=== PATIENT | female | born 1965 | race American Indian/Alaskan Native ===

== ENCOUNTER 2020-04-09 14:10 | Inpatient (IN) | payer OTHER ==
--- NOTE | 2020-04-09 15:59 | Event Note ---
ED Screening Note ED Screening Note: c/o headache that began a week ago pressure all over the head no vision changes, no numbness, no weakness, no speech or gait disturbance states earlier in the week had fever but resolved no n/v/d states she also has a cough and has been on a zpak states she had the COVID 19 test on thursday PMHx HTN no allergies to meds This initial assessment/diagnostic orders/clinical plan/treatment(s) is/are subject to change based on patients health status, clinical progression and re- assessment by fellow clinical providers in the ED. Further treatment and workup at subsequent clinical providers discretion. Patient/guardian urged not to elope from the ED as their condition may be serious if not clinically assessed and managed. Initial orders include: CT head, labs, CXR
--- NOTE | 2020-04-09 16:28 | XRay Report ---
CHEST 2 VIEWS INDICATION: cough, fever, SOB. COMPARISON: 12/02/2014 FINDINGS: SUPPORT DEVICES: None. HEART: Within normal limits. LUNGS/PLEURA: Patchy bibasilar predominant airspace disease in both lungs with some central peribronc hial thickening which demonstrates symmetry. This may reflect a component of mild superimposed edema. No effusion. No pneumothorax. ADDITIONAL FINDINGS: None. IMPRESSION: 1. Pulmonary findings as above. Signer Name: Devonte Goodson MD Signed: 04/09/2020 4:24 PM Workstation Name: [id number]
[2020-04-09 17:28] LABS: Basophils # (Auto) 0.1 K/mm3 (0.0-0.1); Hematocrit 36.8 % (30.3-42.9); Hemoglobin 11.8 gm/dl (10.1-14.3); Lymphocytes # (Auto) 0.8 K/mm3 (1.2-5.4); Lymphocytes % (Auto) 13.3 % (13.4-35.0); Mean Corpuscular HGB Conc 32 % (30-34); Monocytes # (Auto) 0.2 K/mm3 (0.0-0.8); Monocytes % (Auto) 3.8 % (0.0-7.3); Platelet Count 312 K/mm3 (140-440); Red Cell Distribution Width 14.6 % (13.2-15.2)
[2020-04-09 17:34] LABS: Mean Corpuscular Volume 70 fl (79-97)
[2020-04-09] MEDS ORDERED: cefTRIAXone/NS 1 GM/50 ML 1 GM/50 ML BAG IV ONE (17:34)
[2020-04-09] MEDS ORDERED: SODIUM CHLORIDE 0.9% 1000 ML 1,000 ML IV ONE (17:34)
[2020-04-09] MEDS ORDERED: MORPHINE 4 MG/1 ML INJ IV ONE (17:35)
[2020-04-09] MEDS ORDERED: methylPREDNISolone Sod Succinate 40 MG/1 ML INJ IV ONE (17:35)
--- NOTE | 2020-04-09 17:38 | Emergency Department Report ---
HPI - General Chief Complaint: Upper Respiratory Infection Time Seen by Provider: 04/09/20 15:56 - HPI HPI: This is a 55-year-old female presents to the emergency department with a complaint of a 1.5-week history of intermittent headache, mixed dry and pr oductive cough and some mild shortness of breath. Patient also says that she thinks she had a fever earlier last week. Patient has a past medical history of hypertension. She went to an urgent care last week and was placed on some 4-day course of antibiotics but says that did not help. She was tested for Covid 19 at that time but says she has not yet received the results. No recent travel or sick contacts at home. No known exposure to anyone with Covid 19. She denies any tobacco or illicit drug use. ED Past Medical Hx - Past Medical History Previous Medical History?: Yes Hx Hypertension: Yes - Surgical History Past Surgical History?: Yes Additional Surgical History: Hysterectomy - Social History Smoking Status: Never Smoker Substance Use Type: None - Medications Home Medications: Home Medications Medication Instructions Recorded Confirmed Last Taken Type Amlodipine Besylate 10 mg PO ONCE 04/09/20 04/09/20 04/08/20 20:00 History Azithromycin [Zithromax] 250 mg PO BID 04/09/20 04/09/20 04/08/20 20:00 History Cyclobenzaprine [Flexeril 10 MG 10 mg PO BID 04/09/20 04/09/20 04/08/20 20:00 History TAB] ED Review of Systems ROS: Stated complaint: WEAKNESS/HEADACHE/FEVER/COUGH/CONGESTION Other details as noted in HPI Comment: All other systems reviewed and negative Constitutional: other (fatigue). denies: chills Eyes: denies: eye pain, vision change ENT: denies: ear pain, throat pain Respiratory: cough, shortness of breath Cardiovascular: denies: chest pain, palpitations Gastrointestinal: denies: abdominal pain, vomiting Genitourinary: denies: dysuria, discharge Musculoskeletal: myalgia. denies: joint swelling Skin: denies: rash, lesions Neurological: headache. denies: numbness Physical Exam - Physical Exam Vital Signs: Vital Signs 04/09/20 04/09/20 15:57 16:39 Temperature 99.6 F Pulse Rate 92 H Respiratory 18 Rate Blood Pressure 132/74 O2 Sat by Pulse 92 91 Oximetry Physical Exam: GENERAL: The patient is well-developed well-nourished. HENT: Normocephalic. Atraumatic. Patient has moist mucous membranes. EYES: Extraocular motions are intact. No nystagmus. NECK: Supple. Trachea is midline. CHEST/LUNGS: There is tachypnea but no accessory muscle use. A dry cough heard during examination. There is no respiratory distress noted. HEART/CARDIOVASCULAR: Regular. There is no tachycardia. ABDOMEN: Abdomen is soft, nontender. Patient has normal bowel sounds. SKIN: Skin is warm and dry. NEURO: The patient is awake, alert, and oriented. The patient is cooperative. The patient has no focal neurologic deficits. Normal speech. MUSCULOSKELETAL: There is no tenderness or deformity. ED Course Vital Signs 04/09/20 04/09/20 15:57 16:39 Temperature 99.6 F Pulse Rate 92 H Respiratory 18 Rate Blood Pressure 132/74 O2 Sat by Pulse 92 91 Oximetry ED Medical Decision Making - Lab Data Result diagrams: 04/09/20 16:34 04/09/20 16:55 - Radiology Data Radiology results: image reviewed interpreted by me: Chest x-ray shows bilateral patchy infiltrates concerning for pneumonia. - Medical Decision Making This patient presents with a 1.5-week history of some mild shortness of breath, coughing, headache. She presents to triage with some hypoxia of 91 to 92% on room air. Chest x-ray shows bilateral patchy infiltrates. Patient's labs show multiple elevated inflammatory markers such as d-dimer, LDH and CRP. All this together makes the patient moderate to high suspicion for Covid 19. Due to the hypoxia, the patient will be admitted to the hospital for further evaluation and treatment. She was given IV antibiotics, IV fluid, IV analgesia, IV steroids. The patient was accepted for admission by the hospitalist, Dr. Pearce. This patient was in patient isolation and droplet precautions during her entire ED course. I wore full PPE gear for every interaction. Critical Care Time: Yes Critical care time in (mins) excluding proc time.: 31 Critical care attestation.: If time is entered above; I have spent that time in minutes in the direct care of this critically ill patient, excluding procedure time. Critical care time spent on this patient in doing her initial evaluation, multiple re-evaluations, ordering and interpretation of labs and imaging, multiple discussions with the patient, IV analgesia, IV antibiotics, IV fluid resuscitation. Critical Care Time: 31 minutes ED Disposition Clinical Impression: Suspected 2019 novel coronavirus infection, Hypoxia Pneumonia Qualifiers: Pneumonia type: due to unspecified organism Laterality: bilateral Lung location: unspecified part of lung Qualified Code(s): J18.9 - Pneumonia, unspecified organism Disposition: OP ADMIT IP TO THIS HOSP Is pt being admited?: Yes Condition: Stable Time of Disposition: 18:08
[2020-04-09 17:42] LABS: C-Reactive Protein 9.9 mg/dL (0.00-1.30)
[2020-04-09 17:55] LABS: Alanine Aminotransferase 37 units/L (7-56); Albumin 3.4 g/dL (3.9-5); BUN/Creatinine Ratio 10; Blood Urea Nitrogen 10 mg/dL (7-17); Calcium 8.8 mg/dL (8.4-10.2); Hemolysis Index 0
[2020-04-09] MEDS ORDERED: AZITHROMYCIN 500 MG in SODIUM CHLORIDE 0.9% 250ML 250 ML IV ONE (18:00)
[2020-04-09] MEDS ORDERED: methylPREDNISolone Sod Succinate 40 MG/1 ML INJ ONE (18:39)
--- NOTE | 2020-04-09 23:36 | History and Physical Report ---
History of Present Illness Date of examination: 04/09/20 Date of admission: 04/09/20 18:08 Chief complaint: Headache and cough for 10 days. Tested for COVID 4 days ago. History of present illness: 55-year-old female with history of hypertension comes to the emergency room because of 10 days history of headache and productive cough and shortness of breath. Patient had fever last week. Patient has no history of exposure to coronavirus. Patient is on antibiotics for 4days this did not help she is tested for covered 19 virus infection 4 days ago but the results are not back. No known exposure. Body aches present. - Past Medical History Previous Medical History?: Yes Hx Hypertension: Yes - Surgical History Past Surgical History?: Yes Additional Surgical History: Hysterectomy - Social History Smoking Status: Never Smoker Substance Use Type: None - Medications Home Medications: Home Medications Medication Instructions Recorded Confirmed Last Taken Type Amlodipine Besylate 10 mg PO ONCE 04/09/20 04/09/20 04/08/20 20:00 History Azithromycin [Zithromax] 250 mg PO BID 04/09/20 04/09/20 04/08/20 20:00 History Cyclobenzaprine [Flexeril 10 MG 10 mg PO BID 04/09/20 04/09/20 04/08/20 20:00 History TAB] Review of Systems ROS: Stated complaint: WEAKNESS/HEADACHE/FEVER/COUGH/CONGESTION Other details as noted in HPI Comment: All other systems reviewed and negative Constitutional: other (fatigue). denies: chills Eyes: denies: eye pain, vision change ENT: denies: ear pain, throat pain Respiratory: cough, shortness of breath Cardiovascular: denies: chest pain, palpitations Gastrointestinal: denies: abdominal pain, vomiting Genitourinary: denies: dysuria, discharge Musculoskeletal: myalgia. denies: joint swelling Skin: denies: rash, lesions Neurological: headache. denies: numbness Medications and Allergies Allergies Allergy/AdvReac Type Severity Reaction Status Date / Time No Known Allergies Allergy Verified 12/02/14 09:48 Home Medications Medication Instructions Recorded Confirmed Last Taken Type Amlodipine Besylate 10 mg PO ONCE 04/09/20 04/09/20 04/08/20 20:00 History Azithromycin [Zithromax] 250 mg PO BID 04/09/20 04/09/20 04/08/20 20:00 History Cyclobenzaprine [Flexeril 10 MG 10 mg PO BID 04/09/20 04/09/20 04/08/20 20:00 History TAB] Exam - Constitutional Vitals: Temp Pulse Resp BP Pulse Ox 98.4 F 77 20 126/71 97 04/09/20 23:02 04/09/20 23:02 04/09/20 23:02 04/09/20 23:02 04/09/20 23:02 General appearance: Present: no acute distress, well-nourished - EENT Eyes: Present: PERRL ENT: hearing intact, clear oral mucosa - Neck Neck: Present: supple, normal ROM - Respiratory Respiratory effort: normal Respiratory: bilateral: CTA, wheezing (Scattered rhonchi) - Cardiovascular Heart Sounds: Present: S1 & S2. Absent: rub, click - Extremities Extremities: pulses symmetrical, No edema Peripheral Pulses: within normal limits - Abdominal General gastrointestinal: Present: soft, non-tender, non-distended, normal bowel sounds Female genitourinary: Present: normal - Integumentary Integumentary: Present: clear, warm, dry - Musculoskeletal Musculoskeletal: gait normal, strength equal bilaterally - Psychiatric Psychiatric: appropriate mood/affect, intact judgment & insight - Neurologic Neurologic: CNII-XII intact, moves all extremities Results - Labs CBC & Chem 7: 04/10/20 03:47 04/10/20 03:47 Labs: Laboratory Last Values WBC 6.2 K/mm3 (4.5-11.0) 04/09/20 16:34 RBC 5.30 M/mm3 (3.65-5.03) H 04/09/20 16:34 Hgb 11.8 gm/dl (10.1-14.3) 04/09/20 16:34 Hct 36.8 % (30.3-42.9) 04/09/20 16:34 MCV 70 fl (79-97) L 04/09/20 16:34 MCH 22 pg (28-32) L 04/09/20 16:34 MCHC 32 % (30-34) 04/09/20 16:34 RDW 14.6 % (13.2-15.2) 04/09/20 16:34 Plt Count 312 K/mm3 (140-440) 04/09/20 16:34 Lymph % (Auto) 13.3 % (13.4-35.0) L 04/09/20 16:34 Walton % (Auto) 3.8 % (0.0-7.3) 04/09/20 16:34 Eos % (Auto) 0.0 % (0.0-4.3) 04/09/20 16:34 Baso % (Auto) 2.0 % (0.0-1.8) H 04/09/20 16:34 Lymph # 0.8 K/mm3 (1.2-5.4) L 04/09/20 16:34 Walton # 0.2 K/mm3 (0.0-0.8) 04/09/20 16:34 Eos # 0.0 K/mm3 (0.0-0.4) 04/09/20 16:34 Baso # 0.1 K/mm3 (0.0-0.1) 04/09/20 16:34 Seg Neutrophils % 80.9 % (40.0-70.0) H 04/09/20 16:34 Seg Neutrophils # 5.0 K/mm3 (1.8-7.7) 04/09/20 16:34 D-Dimer 883.79 ng/mlDDU (0-234) H 04/09/20 16:55 Sodium 135 mmol/L (137-145) L 04/09/20 16:34 Potassium 4.1 mmol/L (3.6-5.0) 04/09/20 16:34 Chloride 92.5 mmol/L (98-107) L 04/09/20 16:34 Carbon Dioxide 29 mmol/L (22-30) 04/09/20 16:34 Anion Gap 18 mmol/L 04/09/20 16:34 BUN 10 mg/dL (7-17) 04/09/20 16:34 Creatinine 1.0 mg/dL (0.6-1.2) 04/09/20 16:34 Estimated GFR > 60 ml/min 04/09/20 16:34 BUN/Creatinine Ratio 10 % 04/09/20 16:34 Glucose 114 mg/dL (65-100) H 04/09/20 16:55 Calcium 8.8 mg/dL (8.4-10.2) 04/09/20 16:34 Total Bilirubin 0.70 mg/dL (0.1-1.2) 04/09/20 16:34 AST 39 units/L (5-40) 04/09/20 16:34 ALT 37 units/L (7-56) 04/09/20 16:34 Alkaline Phosphatase 83 units/L (35-129) 04/09/20 16:34 Lactate Dehydrogenase 500 units/L (91-180) H 04/09/20 16:55 C-Reactive Protein 9.90 mg/dL (0.00-1.30) H 04/09/20 16:55 NT-Pro-B Natriuret Pep 36.23 pg/mL (0-900) 04/09/20 16:34 Total Protein 7.7 g/dL (6.3-8.2) 04/09/20 16:34 Albumin 3.4 g/dL (3.9-5) L 04/09/20 16:34 Albumin/Globulin Ratio 0.8 % 04/09/20 16:34 - Imaging and Cardiology EKG: report reviewed Imaging and Cardiology: LUNGS/PLEURA: Patchy bibasilar predominant airspace disease in both lungs with some central peribronchial thickening which demonstrates symmetry. This may reflect a component of mild superimposed edema. No effusion. No pneumothorax. ADDITIONAL FINDINGS: None. IMPRESSION: 1. Pulmonary findings as above. Signer Assessment and Plan Advance Directives: Yes (Full code) VTE prophylaxis?: Chemical - Patient Problems (1) Systemic inflammatory response syndrome Current Visit: Yes Status: Acute Plan to address problem: Clinical picture consistent with systemic inflammatory response syndrome (2) Acute respiratory failure with hypoxia Current Visit: Yes Status: Acute (3) Bilateral pneumonia Current Visit: Yes Status: Acute Plan to address problem: Patient started on Zithromax and IV Rocephin. Patient also initiated on IV Decadron (4) Suspected 2019 novel coronavirus infection Current Visit: Yes Status: Acute Plan to address problem: Coronavirus PCR ordered. Inflammatory markers are elevated ID consult requested (5) Elevated d-dimer Current Visit: Yes Status: Acute Plan to address problem: Patient initiated on Lovenox subcu (6) DVT prophylaxis Current Visit: Yes Status: Acute Plan to address problem: Patient initiated on Lovenox and GI prophylaxis
[2020-04-09] MEDS ORDERED: oxyCODONE /ACETAMINOPHEN 5-325MG TAB PO PRN (23:38)
[2020-04-09] MEDS ORDERED: HYDROmorphone 1 MG/1 ML INJ IV PRN (23:38)
[2020-04-09] MEDS ORDERED: ACETAMINOPHEN 325 MG TAB PO PRN (23:38)
[2020-04-09] MEDS ORDERED: ONDANSETRON 4 MG/2 ML INJ IV PRN (23:38)
[2020-04-09] MEDS ORDERED: ENOXAPARIN 40 MG/0.4 ML INJ SUB-Q SCH (23:45)
[2020-04-09] MEDS ORDERED: NON-FORMULARY EACH (Amlodipine Besylate 10 MG) PO SCH (23:45)
[2020-04-10] MEDS: amLODIPine 10 MG TAB PO SCH ×2 (00:42→09:46)
[2020-04-10] MEDS: ENOXAPARIN 100 MG/1 ML INJ SUB-Q SCH ×3 (00:42→23:48)
[2020-04-10 04:35] LABS: Hematocrit 35.3 % (30.3-42.9); Hemoglobin 11.1 gm/dl (10.1-14.3); Mean Corpuscular HGB Conc 32 % (30-34); Platelet Count 301 K/mm3 (140-440); Red Blood Count 5.05 M/mm3 (3.65-5.03); Red Cell Distribution Width 14.5 % (13.2-15.2)
[2020-04-10 04:40] LABS: Mean Corpuscular Volume 70 fl (79-97)
[2020-04-10 04:46] LABS: Alanine Aminotransferase 41 units/L (7-56); BUN/Creatinine Ratio 10; Blood Urea Nitrogen 9 mg/dL (7-17); Calcium 8.4 mg/dL (8.4-10.2); Hemolysis Index 1
[2020-04-10 05:50] LABS: Eosinophils % (Manual) 0 % (0.0-4.3); Platelet Estimate Consistent w Auto; Total Cells Counted 100
[2020-04-10] MEDS: FAMOTIDINE 20 MG TAB PO SCH ×2 (09:44→22:42)
[2020-04-10] MEDS: DEXAMETHASONE 4 MG TAB PO SCH (09:45)
[2020-04-10] MEDS: CYCLOBENZAPRINE 10 MG TAB PO SCH ×2 (09:45→22:42)
[2020-04-10] MEDS: cefTRIAXone/NS 2 GM/100 ML 2 GM/100 ML BAG IV SCH (09:46)
[2020-04-10] MEDS ORDERED: AZITHROMYCIN 500 MG in SODIUM CHLORIDE 0.9% 250ML 250 ML IV SCH (10:00)
[2020-04-10] MEDS ORDERED: dexAMETHasone 4 MG/ML VIAL IV SCH (10:00)
--- NOTE | 2020-04-10 18:47 | Progress Note ---
Assessment and Plan - Patient Problems (1) Acute respiratory failure with hypoxia Current Visit: Yes Status: Acute Plan to address problem: Patient acute respiratory failure seems to be improving. Marked elevated inflammatory markers most likely secondary to COVID-19 pneumonia. (2) Bilateral pneumonia Current Visit: Yes Status: Acute Plan to address problem: Most likely secondary to COVID-19 pneumonia. Inflammatory markers elevated. We will continue to treat with empiric antibiotics for community-acquired pneumonia follow blood cultures accordingly. (3) Hypoxia Current Visit: Yes Status: Acute Plan to address problem: Resolving with oxygen. No longer requires high flow O2. (4) Suspected 2019 novel coronavirus infection Current Visit: Yes Status: Acute Subjective Date of service: 04/10/20 Principal diagnosis: Pneumonia acute respiratory failure. Interval history: Patient 55-year-old with a history of hypertension presented with 10-day history of headache productive cough and shortness of breath. Patient found to have marked elevation of inflammatory markers. D-dimer ferritin LDH. Patient was admitted for sepsis. And acute respiratory failure. Objective - Constitutional Vitals: Vital Signs - 12hr 04/10/20 04/10/20 09:15 09:46 Pulse Rate 65 Respiratory 18 Rate Blood Pressure 114/56 General appearance: Present: no acute distress, well-nourished - EENT Eyes: PERRL, EOM intact ENT: hearing intact, clear oral mucosa Ears: bilateral: normal - Neck Neck: supple, normal ROM - Respiratory Respiratory effort: normal Respiratory: bilateral: CTA - Breasts Breasts: normal - Cardiovascular Rhythm: regular Heart Sounds: Present: S1 & S2. Absent: gallop, rub Extremities: pulses intact, No edema, normal color, Full ROM - Gastrointestinal General gastrointestinal: Present: soft, non-tender, non-distended, normal bowel sounds - Genitourinary Female genitourinary: normal - Integumentary Integumentary: clear, warm, dry - Musculoskeletal Musculoskeletal: 1, strength equal bilaterally - Neurologic Neurologic: moves all extremities - Psychiatric Psychiatric: memory intact, appropriate mood/affect, intact judgment & insight - Labs CBC & Chem 7: 04/10/20 03:47 04/10/20 03:47 Labs: Abnormal lab results 04/09/20 04/10/20 04/10/20 Range/Units 16:55 03:47 03:47 RBC 5.05 H (3.65-5.03) M/mm3 MCV 70 L (79-97) fl MCH 22 L (28-32) pg Seg Neuts % (Manual) 89.0 H (40.0-70.0) % Lymphocytes % (Manual) 8.0 L (13.4-35.0) % Lymphocytes # (Manual) 0.4 L (1.2-5.4) K/mm3 Sodium 135 L (137-145) mmol/L Chloride 95.0 L (98-107) mmol/L Glucose 190 H (65-100) mg/dL Ferritin 421.3 H (10.0-200.0) ng/mL AST 44 H (5-40) units/L Albumin 3.0 L (3.9-5) g/dL Coronavirus (PCR) (Negative) 04/10/20 Range/Units 08:32 RBC (3.65-5.03) M/mm3 MCV (79-97) fl MCH (28-32) pg Seg Neuts % (Manual) (40.0-70.0) % Lymphocytes % (Manual) (13.4-35.0) % Lymphocytes # (Manual) (1.2-5.4) K/mm3 Sodium (137-145) mmol/L Chloride (98-107) mmol/L Glucose (65-100) mg/dL Ferritin (10.0-200.0) ng/mL AST (5-40) units/L Albumin (3.9-5) g/dL Coronavirus (PCR) Positive A (Negative)
--- NOTE | 2020-04-10 20:04 | Consultation ---
History of Present Illness - Reason for Consult Consult date: 04/10/20 COVID Requesting physician: ROSS GONZALEZ - History of Present Illness 55 years old female with history of hypertension, admitted on due to 2-week history of generalized malaise, body aches, fever, headaches, cough and progressive shortness of breath. She was seen as an outpatient and given antibiotics which did not work. On arrival, temperature 99, HR 88, RR 20, O2 sat 91% on room air, BP 132/74. Initial WBC 6.2. D-dimer 883. Ferritin 421. LDH 500. Creatinine 1. CRP 9.9. Chest x-ray with bibasilar patchy infiltrates. COVID-19 PCR positive. Review of Systems: positive in bold print General: + fever, +chills, +malaise Cutaneous: rash, pruritus Head: headaches or injury Eyes: changes in vision, eye pain, double vision Ears: ear pain, ear discharge, ringing or hearing loss Nose: nose bleeding, stuffiness Mouth & throat: bleeding gums, horseness, no dental problems, or swollen glands Neck: no pain, node enlargement/lumps, tyroid enlargement or tenderness Respiratory: +SOB, +cough, +WAYNE, wheezing, sputum, hemoptysis, pleuritic chest pain Cardiovascular: chest pain, leg edema, cyanosis, WAYNE, orthopnea Musculoskeletal: edema, deformities, clubbing Gastrointestinal: nausea, vomiting, hematemesis, diarrhea, constipation, melena, bright red blood in stools, fecal incontinence, jaundice Genitourinary/Reproductive: frequent urination, dysuria, hematuria, incontinence Neurogical: confusion, seizures, headaches, weakness, paresthesias, loss of speech or vision; memory loss, vertigo, tremors, numbness Psychiatric: stable mood; excessive anxiety, sadness or moodiness Medications and Allergies Allergies Allergy/AdvReac Type Severity Reaction Status Date / Time No Known Allergies Allergy Verified 12/02/14 09:48 Home Medications Medication Instructions Recorded Confirmed Last Taken Type Amlodipine Besylate 10 mg PO ONCE 04/09/20 04/09/20 04/08/20 20:00 History Azithromycin [Zithromax] 250 mg PO BID 04/09/20 04/09/20 04/08/20 20:00 History Cyclobenzaprine [Flexeril 10 MG 10 mg PO BID 04/09/20 04/09/20 04/08/20 20:00 History TAB] Active Meds: Active Medications Acetaminophen (Tylenol) 650 mg PO Q4H PRN PRN Reason: Pain MILD(1-3)/Fever >100.5/UGALDE Amlodipine Besylate (Amlodipine) 10 mg PO QDAY [facility] Last Admin: 04/10/20 09:46 Dose: Not Given Documented by: Azithromycin (Zithromax) 500 mg PO QDAY [facility] Stop: 04/13/20 10:01 Cyclobenzaprine HCl (Flexeril) 10 mg PO BID [facility] Last Admin: 04/10/20 09:45 Dose: 10 mg Documented by: Dexamethasone (Decadron) 6 mg PO DAILY [facility] Stop: 04/19/20 10:01 Last Admin: 04/10/20 09:45 Dose: 6 mg Documented by: Enoxaparin Sodium (Enoxaparin) 100 mg SUB-Q Q12H [facility] Last Admin: 04/10/20 12:59 Dose: 100 mg Documented by: Famotidine (Pepcid) 20 mg PO BID [facility] Last Admin: 04/10/20 09:44 Dose: 20 mg Documented by: Hydromorphone HCl (Dilaudid) 0.5 mg IV Q3H PRN PRN Reason: Pain , Severe (7-10) Ceftriaxone Sodium (Rocephin/Ns 2 Gm/100 Ml) 2 gm in 100 mls @ 200 mls/hr IV Q24HR [facility]; Protocol Last Infusion: 04/10/20 10:20 Dose: Infused Documented by: Ondansetron HCl (Zofran) 4 mg IV Q8H PRN PRN Reason: Nausea And Vomiting Oxycodone/Acetaminophen (Percocet 5/325) 1 tab PO Q6H PRN PRN Reason: Pain, Moderate (4-6) Sodium Chloride (Sodium Chloride Flush Syringe 10 Ml) 10 ml IV BID [facility] Last Admin: 04/10/20 09:46 Dose: 10 ml Documented by: Sodium Chloride (Sodium Chloride Flush Syringe 10 Ml) 10 ml IV PRN PRN PRN Reason: LINE FLUSH Physical Examination - Physical Exam Narrative exam: Physical Exam: reviewed ED and hospitalist notes, limited due to conservation of PPE General appearance: limited due to conservation of PPE Eyes: limited due to conservation of PPE HENT: Atraumatic; limited due to conservation of PPE Lungs: limited due to conservation of PPE CV: limited due to conservation of PPE Abdomen: limited due to conservation of PPE Extremities: limited due to conservation of PPE Skin: limited due to conservation of PPE Psych: limited due to conservation of PPE Neuro: limited - Constitutional Vitals: Vital Signs Temp Pulse Resp BP Pulse Ox 98.3 F 65 18 114/56 93 04/10/20 05:34 04/10/20 09:46 04/10/20 09:15 04/10/20 09:46 04/10/20 05:34 Temperature -Last 24 Hours Temperature 98.3 F Temperature 98.4 F Results - Labs CBC & Chem 7: 04/10/20 03:47 04/10/20 03:47 Labs: Abnormal lab results 04/09/20 04/10/20 04/10/20 Range/Units 16:55 03:47 03:47 RBC 5.05 H (3.65-5.03) M/mm3 MCV 70 L (79-97) fl MCH 22 L (28-32) pg Seg Neuts % (Manual) 89.0 H (40.0-70.0) % Lymphocytes % (Manual) 8.0 L (13.4-35.0) % Lymphocytes # (Manual) 0.4 L (1.2-5.4) K/mm3 Sodium 135 L (137-145) mmol/L Chloride 95.0 L (98-107) mmol/L Glucose 190 H (65-100) mg/dL Ferritin 421.3 H (10.0-200.0) ng/mL AST 44 H (5-40) units/L Albumin 3.0 L (3.9-5) g/dL Coronavirus (PCR) (Negative) 04/10/20 Range/Units 08:32 RBC (3.65-5.03) M/mm3 MCV (79-97) fl MCH (28-32) pg Seg Neuts % (Manual) (40.0-70.0) % Lymphocytes % (Manual) (13.4-35.0) % Lymphocytes # (Manual) (1.2-5.4) K/mm3 Sodium (137-145) mmol/L Chloride (98-107) mmol/L Glucose (65-100) mg/dL Ferritin (10.0-200.0) ng/mL AST (5-40) units/L Albumin (3.9-5) g/dL Coronavirus (PCR) Positive A (Negative) Assessment and Plan Cultures: none Assessment: 55 years old female with history of hypertension, admitted on due to 2-week history of generalized malaise, body aches, fever, headaches, cough and progressive shortness of breath: #Severe sepsis : likely due to bilateral pneumonia. #Severe COVID pneumonia: Patient presented with 2 weeks of symptoms, chest x-ray with patchy bibasilar infiltrates. Admission O2 sats 91% on room air. Inflammatory markers are mildly elevated - D-dimer 883. Ferritin 421. LDH 500 CRP 9.9. #Acute hypoxemic respiratory failure: on 2L NC O2 Recommendations: -Start Dexamethasone 6 mg IV/PO daily for 10 days -If persistent hypoxia will consider Remdesivir 200 mg IV q day x 1 day followed by 100 mg IV q day x 4 days (CrCl>30. Order placed) -If rapidly worsening hypoxia will consider Tocilizumab 8 mg/kg IV x 1 -Monitor inflammatory markers - ferritin, Ddimer, CRP, LDH -Continue anticoagulation per protocol High risk mortality due to severe COVID-19 infection and comorbidities. Will follow Anjana Serrano MD Infectious Diseases Configuration Management Manager [facility] M [phone] O [phone]
[2020-04-11] MEDS: FAMOTIDINE 20 MG TAB PO SCH (09:19)
[2020-04-11] MEDS: DEXAMETHASONE 4 MG TAB PO SCH (09:19)
[2020-04-11] MEDS: amLODIPine 10 MG TAB PO SCH (09:20)
[2020-04-11] MEDS: CYCLOBENZAPRINE 10 MG TAB PO SCH (09:20)
[2020-04-11] MEDS: cefTRIAXone/NS 2 GM/100 ML 2 GM/100 ML BAG IV SCH (09:20)
[2020-04-11] MEDS ORDERED: AZITHROMYCIN 250 MG TAB PO SCH (10:00)
--- NOTE | 2020-04-11 10:57 | Progress Note ---
Assessment and Plan Cultures: none Assessment: 55 years old female with history of hypertension, admitted on due to 2-week history of generalized malaise, body aches, fever, headaches, cough and progressive shortness of breath: #Severe COVID pneumonia: Patient presented with 2 weeks of symptoms, chest x-ray with patchy bibasilar infiltrates. Admission O2 sats 91% on room air. Inflammatory markers are mildly elevated - D-dimer 883. Ferritin 421. LDH 500, CRP 9.9. #Acute hypoxemic respiratory failure: remains on 2L NC O2 Recommendations: -Continue Dexamethasone 6 mg IV/PO daily for 10 days -check walking sats if ok the OK to d/c home -If persistent hypoxia will consider Remdesivir 200 mg IV q day x 1 day followed by 100 mg IV q day x 4 days (CrCl>30. Order placed) -If rapidly worsening hypoxia will consider Tocilizumab 8 mg/kg IV x 1 -Monitor inflammatory markers - ferritin, Ddimer, CRP, LDH - recheck today -Continue anticoagulation per protocol Will follow Anjana Serrano MD [facility] [phone] O [phone] Subjective Date of service: 04/11/20 Principal diagnosis: Pneumonia acute respiratory failure. Interval history: Remains on NC 2L sat 95% Objective - Exam Narrative Exam: Physical Exam: reviewed ED and hospitalist notes, limited due to conservation of PPE General appearance: limited due to conservation of PPE Eyes: limited due to conservation of PPE HENT: Atraumatic; limited due to conservation of PPE Lungs: limited due to conservation of PPE CV: limited due to conservation of PPE Abdomen: limited due to conservation of PPE Extremities: limited due to conservation of PPE Skin: limited due to conservation of PPE Psych: limited due to conservation of PPE Neuro: limited - Constitutional Vitals: Vital Signs Temp Pulse Resp BP Pulse Ox 98.7 F 66 20 130/79 95 04/10/20 22:36 04/10/20 22:36 04/10/20 22:36 04/10/20 22:36 04/11/20 08:19 Temperature -Last 24 Hours Temperature 98.7 F Temperature 98.2 F - Labs CBC & Chem 7: 04/10/20 03:47 04/10/20 03:47 Labs: Abnormal lab results 04/10/20 Range/Units 08:32 Coronavirus (PCR) Positive A (Negative)
[2020-04-11 11:39] LABS: C-Reactive Protein 3.9 mg/dL (0.00-1.30)
[2020-04-11] MEDS: ENOXAPARIN 100 MG/1 ML INJ SUB-Q SCH (11:48)
--- NOTE | 2020-04-11 11:59 | Discharge Summary ---
Providers - Providers Date of Admission: 04/09/20 18:08 Date of discharge: 04/11/20 Attending physician: CEE RIVERA 04/09/20 23:38 Consult to Physician [CONS] Routine Comment: Consulting Provider: LCARISSE LLAMAS Physician Instructions: Reason For Exam: Bilateral pneumonia, Pui Primary care physician: [employer] Hospitalization Condition: Stable Hospital course: Patient 55 years old with a history of hypertension presented with a two-week history of shortness of breath arthralgia myalgias. Patient failed outpatient treatment with antibiotics. Presented to the ER found to have Kovic pneumonia with severe sepsis. Patient treated with antiretrovirals as well as dexamethasone. Defervesced well. Over the 2 3 course of treatment. Patient walks stable was 95% on room air stable for discharge to complete dexamethasone for 10 days. Disposition: DC-30 STILL A PATIENT - Discharge Diagnoses (1) Acute respiratory failure with hypoxia Status: Acute Comment: Resolved secondary to severe cope with pneumonia. (2) Bilateral pneumonia Status: Acute (3) Hypoxia Status: Acute Comment: Hypoxemia has resolved. Bipin to pneumonia. Continue dexamethasone upon discharge. Patient walking room air sats 98%. (4) Suspected 2019 novel coronavirus infection Status: Acute Core Measure Documentation - Palliative Care Palliative Care/ Comfort Measures: Not Applicable - Core Measures Any of the following diagnoses?: none Exam - Constitutional Vitals: Temp Pulse Resp BP Pulse Ox 98.7 F 66 20 130/79 95 04/10/20 22:36 04/10/20 22:36 04/10/20 22:36 04/10/20 22:36 04/11/20 08:19 General appearance: Present: no acute distress, well-nourished - EENT Eyes: Present: PERRL ENT: hearing intact, clear oral mucosa - Neck Neck: Present: supple, normal ROM - Respiratory Respiratory effort: normal Respiratory: bilateral: CTA - Cardiovascular Heart Sounds: Present: S1 & S2. Absent: rub, click - Extremities Extremities: pulses symmetrical, No edema Peripheral Pulses: within normal limits - Abdominal General gastrointestinal: Present: soft, non-tender, non-distended, normal bowel sounds Female genitourinary: Present: normal - Integumentary Integumentary: Present: clear, warm, dry - Musculoskeletal Musculoskeletal: gait normal, strength equal bilaterally - Psychiatric Psychiatric: appropriate mood/affect, intact judgment & insight - Neurologic Neurologic: CNII-XII intact, moves all extremities Plan Activity: no restrictions Weight Bearing Status: Full Weight Bearing Diet: regular Durable Medical Equipment Needed Upon Discharge: other (isolation for 5 moire days) Follow up with: PRIMARY CARE, [Primary Care Provider] - 7 Days Prescriptions: dexAMETHasone [Decadron] 6 mg PO DAILY #7 tablet
[2020-04-11 13:29] VITALS: BP 132/78
== END 2020-04-11 16:23 | disposition home or self-care (01) | DRG 871 ==
LOC: ED 14:10 → 3A 18:08
PROVIDERS: ADMIT Internal Medicine; ATTEND Internal Medicine
DX: A41.89 Other specified sepsis (principal); U07.1 COVID-19; J96.01 Acute respiratory failure with hypoxia; J12.89 Other viral pneumonia; R65.20 Severe sepsis without septic shock; I10 Essential (primary) hypertension; Z90.710 Acquired absence of both cervix and uterus
CPT/HCPCS: 36415; 71046; 80053; 82728; 82947; 83036; 83520; 83615; 83880; 84145; 85007; 85025; 85379; 86140; 94760; G0378; J0456; J0696; J1650; J2270; J2920; J7030; J7050; J8540; U0003-CS